=== PATIENT | female | born 1970 | race Asian ===

== ENCOUNTER 2017-01-27 16:32 | Emergency (ER) | payer OTHER ==
[~2017-01-27] VITALS: Ht 160 cm; Wt 77.1 kg
[2017-01-27 16:37] VITALS: BP 120/84
--- NOTE | 2017-01-27 16:57 | ED HAND/WRIST INJURY COMPLAINT ---
History of Present Illness General Chief Complaint: Laceration Procedure Stated Complaint: FINGER LAC Source: patient Exam Limitations: no limitations Vital Signs & Intake/Output Vital Signs & Intake/Output Vital Signs Date Time Temp Pulse Resp B/P B/P Pulse O2 O2 Flow FiO2 Mean Ox Delivery Rate 01/27 1637 97.0 74 16 120/84 99 Room Air Allergies Coded Allergies: No Known Allergies (01/27/17) Triage Note: LEFT INDEX FINGER LAC FROM [employer] 30MINS [employer]IMAL TRA[employer], WENT TO WALK IN WHO TOLD HER TO COME TO ED FOR XRAY TO R/O FOREIGN BODY AND TO ENABLE SUTURING. BLEEDING IS CONTROLLED. UNSURE IF UTD ON TETANUS. TOOK ADVIL 400MG [employer]IMAL TRAINER. CLEANED WITH PEROXIDE AND DRESSING APPLIED. Triage Nurses Notes Reviewed? yes Occurred: just prior to arrival Duration: hour(s):, constant, continues in ED Timing: recent history Injury Environment: home No Modifying Factors: none HPI: 46-year-old female comes into emergency room after cutting her left index finger on a non-battery loader cloth folder machine. Last tetanus shot unknown. Mild throbbing pain. Denies any other system symptoms or trauma. Past History Travel History Traveled to [place] past 21 day No Medical History Any Pertinent Medical History? see below for history Neurological: NONE EENT: NONE Cardiovascular: NONE Respiratory: NONE Gastrointestinal: NONE Hepatic: NONE Renal: NONE Musculoskeletal: NONE Psychiatric: NONE Endocrine: NONE Blood Disorders: NONE Cancer(s): NONE Surgical History Surgical History: non-contributory Psychosocial History What is your primary language Uzbek Tobacco Use: Never used ETOH Use: denies use Family History Hx Contributory? No Review of Systems Review of Systems Constitutional: Reports: no symptoms. EENTM: Reports: no symptoms. Respiratory: Reports: no symptoms. Cardiovascular: Reports: no symptoms. GI: Reports: no symptoms. Genitourinary: Reports: no symptoms. Musculoskeletal: Reports: see HPI. Skin: Reports: see HPI. Neurological/Psychological: Reports: no symptoms. Hematologic/Endocrine: Reports: no symptoms. Immunologic/Allergic: Reports: no symptoms. All Other Systems: Reviewed and Negative Physical Exam Physical Exam General Appearance: well developed/nourished, mild distress Head: atraumatic Eyes: Bilateral: normal appearance. Ears, Nose, Throat: normal ENT inspection, hearing grossly normal Neck: normal inspection Cardiovascular/Respiratory: no respiratory distress Back: normal inspection Hand Left: 2nd finger, small skin avulsion distal tip of finger, small superficial cut to the pad of the finger, nothing suturable on exam Hand Right: normal inspection Neurologic/Tendon: normal sensation, normal motor functions, normal tendon functions, responds to pain, no evidence tendon injury, no pulse deficit Skin: intact, normal color, warm/dry Lymphatic: no anterior cervical candie Progress Differential Diagnosis: dislocation, fracture, gout, paronychia, septic arthritis, sprain, tenosynovitis Plan of Care: Current Medications Sig/Miriam Start time Last Medication Dose Stop Time Status Admin Tetanus/Diphtheria 0 .STK-MED ONE 01/27 1711 AC Toxoids Adsorbed (Decavac) Departure Departure Disposition: HOME OR SELF CARE Condition: Stable Clinical Impression Primary Impression: Avulsion of skin of finger Referrals: PATIENT HAS NO PRIMARY CARE DR (PCP/Family) Additional Instructions: Keep covered with bacitracin and dry dressing. Watch for signs of infection such as redness swelling discharge fever chills. Return if any concerns worsening symptoms. Please go over all results of today's visit with your primary care doctor. Contact your primary care doctor to let them know you were here in the emergency room. There may be nonspecific findings which may not be related to your visit today here in the emergency room but may require further evaluation and chronic monitoring by your primary care doctor. If you had a laceration today the chance of foreign body always remains. You should follow-up with your primary care doctor for recheck in 3-5 days for a wound check. If you had an x-ray done there is a chance that a fracture could have been missed on initial read and you should follow-up with your primary care doctor for repeat x-rays if symptoms persist. If your blood pressure was elevated here in the emergency room please have rechecked by her primary care doctor within the next 48 hours by your primary care doctor. If you were prescribed a narcotic here in the emergency room or any type of controlled substances you're not allowed to drive while taking this medication or operate any type of heavy machinery. Narcotics can make you feel lightheaded dizziness nausea and can cause constipation. You may need to pickers material handlers a stool softener. Thank you for choosing [facility] emergency room. Please return to the emergency room immediately if you have any other concerns worsening of symptoms. Departure Forms: Customer Survey General Discharge Information Comments 01/27/2017 5:07:57 PM Nothing suturable on exam. Cleaned with saline. Bacitracin and dry dressing placed. No active bleeding. Follow-up as needed. Return if any concerns.
== END 2017-01-27 17:22 ==
LOC: ERH 16:32
DX: S61.211A Laceration without foreign body of left index finger without damage to nail, initial encounter (principal); W29.0XXA Contact with powered kitchen appliance, initial encounter; Y92.9 Unspecified place or not applicable; Y93.9 Activity, unspecified
CPT/HCPCS: 90471; 90714